=== PATIENT | male | born 1990 | race African-American/Black ===

== ENCOUNTER 2018-06-14 21:39 | Emergency (ER) | payer OTHER ==
[2018-06-14] MEDS ORDERED: Sulfamethox/Trimethoprim DS 800/160* TAB PO ONE (22:41)
[2018-06-14] MEDS ORDERED: Tetan/Diph/Pertus SYR(Tdap)* 0.5 ML SYR(BOOSTRIX) use SYR IM ONE (22:41)
[2018-06-14] MEDS ORDERED: Lidocaine 1%* 5 ML VIAL INJ ONE ×2 (23:07→23:08)
[2018-06-14] MEDS ORDERED: Lidocaine 1%* 5 ML VIAL ONE ×2 (23:09→23:50)
[2018-06-15] MEDS ORDERED: Sulfamethox/Trimethoprim DS 800/160* TAB PO ONE (00:29)
--- NOTE | 2018-06-15 00:31 | ED ---
Laceration/Wound HPI - HPI Summary HPI Summary: Patient from [place] complains of laceration to left side face from another inmate with scalpel today. Bleeding controlled. Medical history is none. Denies any other symptoms or injury. - History of Current Complaint Stated Complaint: LT FACIAL LACERATION Time Seen by Provider: 06/14/18 22:13 Hx Obtained From: Patient Mechanism of Injury: Sharp/Blunt Trauma Onset/Duration: Sudden Onset Current Severity: None Pain Intensity: 0 Pain Scale Used: 0-10 Numeric Associated Signs & Symptoms: Negative - Allergy/Home Medications Allergies/Adverse Reactions: Allergies Allergy/AdvReac Type Severity Reaction Status Date / Time Penicillins AdvReac Intermediate Hives Verified 06/14/18 21:49 PMH/Surg Hx/FS Hx/Imm Hx Endocrine/Hematology History: Denies: Hx Anticoagulant Therapy History: Denies: Hx Dialysis Neurological History: Denies: Hx CVA - Immunization History Date of Tetanus Vaccine: 04/2018 Immunizations Up to Date: Yes Infectious Disease History: No Infectious Disease History: Denies: Traveled Outside the [place] in Last 30 Days - Social History Alcohol Use: None Substance Use Type: Reports: None Smoking Status (MU): Never Smoked Tobacco Review of Systems Constitutional: Negative Eyes: Negative ENT: Negative Cardiovascular: Negative Respiratory: Negative Gastrointestinal: Negative Genitourinary: Negative Musculoskeletal: Negative Skin: Other Neurological: Negative Psychological: Normal All Other Systems Reviewed And Are Negative: Yes Physical Exam - Summary Physical Exam Summary: 17 cm laceration from left baptist down towards corner of left side mouth without any involvement of vermilion border or lips. Laceration does not penetrate through to oral cavity. Vital Signs On Initial Exam: Initial Vitals Temp Pulse Resp BP Pulse Ox 98.3 F 52 16 142/65 97 06/14/18 21:47 06/14/18 21:47 06/14/18 21:47 06/14/18 21:47 06/14/18 21:47 Vital Signs Reviewed: Yes Appearance: Positive: Well-Appearing Skin: Positive: Warm Head/Face: Positive: Normal Head/Face Inspection Eyes: Positive: Normal ENT: Positive: Normal ENT inspection Neck: Positive: Supple Respiratory/Lung Sounds: Positive: Clear to Auscultation Cardiovascular: Positive: Normal Abdomen Description: Positive: Nontender Musculoskeletal: Positive: Normal Neurological: Positive: Normal Psychiatric: Positive: Normal AVPU Assessment: Alert - [place] Coma Scale Best Eye Response: 4 - Spontaneous Best Motor Response: 6 - Obeys Commands Best Verbal Response: 5 - Oriented Coma Scale Total: 15 Procedures - Laceration/Wound Repair 1 Location: face Description: Linear Anesthesia: Local, 1.0% Length, Depth and Shape: 18cm x 1cm Betadine Prep?: No - chlorhexidine prep Laceration/Wound Explored: clean, foreign body removed - hair Debridement: minimal Number of Sutures: 37 - mix of single interrupted and running sutures. 6.0 ethilon Layer Closure?: No Diagnostics - Vital Signs Vital Signs Temp Pulse Resp BP Pulse Ox 06/14/18 21:47 98.3 F 52 16 142/65 97 - Laboratory Lab Statement: Any lab studies that have been ordered have been reviewed, and results considered in the medical decision making process. Laceration Repair Course/Dx - Course Course Of Treatment: Patient from [place] complains of laceration to left side face from another inmate with scalpel today. Bleeding controlled. Medical history is none. Denies any other symptoms or injury. 17 cm laceration from left baptist down towards corner of left side mouth without any involvement of vermilion border or lips. Laceration does not penetrate through to oral cavity. Sutures placed. Patient started on Bactrim here in the ED. Rx for same. - Clinical Impression Provider Diagnoses: Facial laceration Discharge - Sign-Out/Discharge Documenting (check all that apply): Patient Departure - Discharge Plan Condition: Stable Disposition: LAW ENFORCEMENT/COURT Prescriptions: Sulfamethox/Trimethoprim DS* [Bactrim DS 800/160 TAB*] 1 tab PO BID 10 Days #20 tab Patient Education Materials: Care For Your Stitches (ED), Facial Laceration (ED ) Referrals: Livan VALENZUELA,Taras Hernandez [Primary Care Provider] - Additional Instructions: Take antibiotics as directed. May wash with warm running water and soap. Do not submerge as in swimming for 4 days. Sutures out in 5 days. Return to the ED for any new or worsening symptoms - Billing Disposition and Condition Condition: STABLE Disposition: Law Enforcement/Court
[2018-06-15 01:09] VITALS: BP 162/83
== END 2018-06-15 01:05 ==
LOC: ED 21:39
DX: S01.81XA Laceration without foreign body of other part of head, initial encounter (principal); Y09 Assault by unspecified means; Y92.149 Unspecified place in prison as the place of occurrence of the external cause
CPT/HCPCS: 12005; 90471; 99283; A9270-GY